=== PATIENT | male | born 1960 | race Caucasian/White ===

== ENCOUNTER 2016-12-05 15:16 | Emergency (ER) | payer OTHER ==
[2016-12-05 15:22] VITALS: BP 139/90; PULSE 77; RESP 16; TEMP 98.4; O2SAT 95
--- NOTE | 2016-12-05 16:43 | EDPHY ---
H & P Time Seen by Provider: 12/05/16 15:53 HPI/ROS: CHIEF COMPLAINT: head injury HISTORY OF PRESENT ILLNESS: Patient is a 55-year-old male who presents emergency department after striking his head on the ice while curling last evening. Patient states he had a mechanical fall. He struck his head but did not lose consciousness. He now feels mildly "slow." He has been feeling foggy and had mild nausea. No vomiting. No neck pain. No headache. No focal neurologic deficits. Patient has had a concussion in the past. REVIEW OF SYSTEMS: My complete review of systems is negative except as mentioned in the HPI. Past Medical/Surgical History: Includes Concussion Smoking Status: Former smoker Physical Exam: Vitals noted GENERAL: Well-appearing, in no acute distress, alert. HEAD: No evidence of trauma. EYES: PERRLA, EOMI, normal to inspection. ENT: Airway intact, normal external examination. NECK: The C-spine is nontender. NEXUS criteria is negative (no midline tenderness, no distracting injury, no altered mental status, no recent alcohol use, no focal neurologic deficit). RESPIRATORY: no respiratory distress CVS: well perfused BACK: Normal movement. SKIN: Normal color, warm, dry. No pallor or diaphoresis. EXTREMITIES: Atraumatic, neurovascularly intact distally in all extremities, pelvis is stable , hips with full range of motion, moves all extremities freely. NEURO/PSYCH: Higher functions: Alert and Oriented x3. Normal speech and cognition. Normal mood and affect. Cranial nerves: Normal as tested. Cerebellar: Normal as tested. Good finger to nose, good [id number], normal gait. Peripheral exam: Normal motor exam. Normal sensation. Constitutional: Initial Vital Signs Temperature (C) 36.9 C 12/05/16 15:20 Heart Rate 77 12/05/16 15:20 Respiratory Rate 16 12/05/16 15:20 Blood Pressure 139/90 H 12/05/16 15:20 O2 Sat (%) 95 12/05/16 15:20 O2 Delivery Mode Room Air Allergies/Adverse Reactions: Penicillins Allergy (Verified 12/05/16 15:19) Home Medications: Medication Instructions Recorded Flomax 12/05/16 Medical Decision Making ED Course/Re-evaluation: In the emergency department I discussed possible etiologies with the patient. At this time I do not feel the patient needs CT imaging. I explained this to the patient answers questions. Patient was given warnings regarding concussion closed-head injury. He will follow up with Dr. Woods. He was given warnings prior to leaving. He will return with worsening symptoms. Differential Diagnosis: My differential includes but is not limited to concussion, closed head injury, subarachnoid hemorrhage, subdural hematoma, epidural hematoma, spinal injury Departure - Departure Disposition: Home, Routine, Self-Care Clinical Impression: Head injury Qualifiers: Encounter type: initial encounter Qualifier Code: (S09.90XA) Unspecified injury of head, initial encounter Condition: Good Instructions: Head Injury (ED) Additional Instructions: Return with increasing headache, weakness, numbness, dizziness, more confusion or any other concerns. Referrals: Moira Woods MD [Medical Doctor] - 5-7 days, call for appt.
== END 2016-12-05 16:55 | disposition home or self-care (01) ==
DX: S09.90XA Unspecified injury of head, initial encounter (principal); Z87.891 Personal history of nicotine dependence; W18.09XA Striking against other object with subsequent fall, initial encounter; Y99.8 Other external cause status; Y93.89 Activity, other specified

== ENCOUNTER 2017-04-18 19:16 | Emergency (ER) | payer OTHER ==
[2017-04-18 19:26] VITALS: TEMP 98.8
--- NOTE | 2017-04-18 20:52 | EDPHY ---
HPI/HX/ROS/PE/MDM Narrative: CHIEF COMPLAINT: Hernia HISTORY OF PRESENT ILLNESS: The patient is a 56-year-old male presenting with "abdominal bulge" that he noticed after a bike ride today. The patient reports a new bump to his epigastric region. He has some associated tenderness to the area though he states this may be related to his GERD. He has been taking Emprizone daily for the past three weeks, without relief. He continues to have epigastric pain with bloating and belching. He denies fever, chills, chest pain , shortness of breath, palpitations, vomiting, diarrhea, urinary complaints, headache, lightheadedness. REVIEW OF SYSTEMS: Aside from elements discussed in the HPI, a comprehensive 10-point review of systems was reviewed and is negative. PAST MEDICAL HISTORY: GERD, Hypertension SOCIAL HISTORY: Daily alcohol use. VITAL SIGNS: Reviewed by me GENERAL: Well-developed, well-nourished, resting comfortably in no respiratory distress. HEENT: Atraumatic. Eyes: No icterus, no injection. Mouth: moist mucous membranes. No erythema or lesions. Neck: supple with no adenopathy. LUNGS: Clear to auscultation bilaterally, no wheezes, rhonchi or rales. CARDIAC: Regular rate and rhythm, no rubs, murmurs or gallops. ABDOMEN: Diastasis of rectus muscles, with head up patient has ventral hernia present. Epigastric tenderness. BACK: No CVA tenderness. EXTREMITIES: No trauma. No edema. Range of motion is normal throughout. NEURO: Alert and oriented, grossly nonfocal. SKIN: Warm and dry, no rash. PSYCHIATRIC: Normal mentation, no agitation. Portions of this note were transcribed by a biomedical engineering aide. I personally performed a history, physical exam, medical decision making, and confirmed accuracy of information the transcribed note. ED Course: Patient presents with diastalsis between rectus muscles representing ventral hernia when head is lifted. Patient additionally complains of epigastric tenderness. He takes omeprazole daily, without relief. Patient drinks alcohol daily. Plan to check basic lab work. Evaluation for epigastric pain largely unremarkable. Has appointment tomorrow with PCP. Will discharge. MDM: After obtaining the patients history and performing an examination, differential diagnosis considered included but was not limited to gastritis, gerd, pancreatitis, cholecystitis, ventral hernia, hiatal hernia, strangulated hernia, incarcerated hernia and other causes. - Data Points Laboratory Results: Laboratory Results 04/18/17 21:15 04/18/17 21:15 General Time Seen by Provider: 04/18/17 20:29 Initial Vital Signs: Initial Vital Signs Temperature (C) 37.1 C 04/18/17 19:22 Heart Rate 88 04/18/17 19:22 Respiratory Rate 18 04/18/17 19:22 Blood Pressure 176/113 H 04/18/17 19:22 O2 Sat (%) 96 04/18/17 19:22 O2 Delivery Mode Room Air Allergies/Adverse Reactions: Penicillins Allergy (Verified 04/18/17 19:26) Home Medications: Medication Instructions Recorded Flomax 12/05/16 HYDROCORTISONE 04/18/17 Prilosec Otc 04/18/17 Departure - Departure Disposition: Home, Routine, Self-Care Clinical Impression: Epigastric pain Ventral hernia Qualifiers: Obstruction and gangrene presence: without obstruction or gangrene Qualified Code(s): K43.9 - Ventral hernia without obstruction or gangrene Condition: Good Instructions: Ventral Hernia (ED) Additional Instructions: Call your primary care physician tomorrow to arrange a followup appointment. Your laboratory evaluation is normal. Dr. Pierce will be able to see it in the computer system. Referrals: Garrick Pierce MD [Primary Care Provider] - As per Instructions Report Scribed for: Consuelo Chavira Report Scribed by: Nicole Vela Date of Report: 04/18/17 Time of Report: 20:54
[2017-04-18 21:23] LABS: % IMMATURE GRANULYOCYTES 0.2 % (0.0-1.1); ABSOLUTE IMMATURE GRANULOCYTES 0.01 10^3/uL (0.00-0.10); ADD DIFF? NO; ADD MORPH? NO; ADD SCAN? NO; ATYPICAL LYMPHOCYTE FLAG 10 (0-99); FRAGMENT RBC FLAG 0 (0-99); HEMATOCRIT 42.7 % (40.0-51.0); HEMOGLOBIN 14.8 g/dL (13.7-17.5); LEFT SHIFT FLG 0 (0-99); LIPEMIA HEMOLYSIS FLAG 90 (0-99); MEAN CELL HEMOGLOBIN 31.8 pg (27.9-34.1); MEAN CELL HEMOGLOBIN CONCENTR. 34.7 g/dL (32.4-36.7); MEAN CELL VOLUME 91.6 fL (81.5-99.8); MEAN PLATELET VOLUME 10.7 fL (8.7-11.7); PLATELET CLUMPS FLAG 10 (0-99); PLATELET COUNT 168 10^3/uL (150-400); RED BLOOD CELL COUNT 4.66 10^6/uL (4.40-6.38); RED CELL DISTRIBUTION WIDTH 12.9 % (11.5-15.2)
[2017-04-18 21:35] LABS: ALANINE AMINOTRANSFERASE 37 IU/L (21-72); ALBUMIN 4.7 g/dL (3.5-5.0); ALKALINE PHOSPHATASE 51 IU/L (38-126); ANION GAP 11 mEq/L (8-16); ASPARTATE AMINOTRANSFERASE 41 IU/L (17-59); BILIRUBIN,TOTAL 1.3 mg/dL (0.1-1.4); BILIRUBIN-CONJUGATED 0.2 mg/dL (0.0-0.5); BILIRUBIN-UNCONJUGATED 1.1 mg/dL (0.0-1.1); CALCIUM 9.6 mg/dL (8.5-10.4); CARBON DIOXIDE 21 mEq/l (22-31); CHLORIDE 103 mEq/L (97-110); CREATININE 0.8 mg/dL (0.7-1.3); GLOMERULAR FILTRATION RATE > 60; GLUCOSE 99 mg/dL (70-100); POTASSIUM 4.5 mEq/L (3.5-5.2); SODIUM 135 mEq/L (134-144); SPECIMEN HEMOLYSIS 104; TOTAL PROTEIN 7.9 g/dL (6.3-8.2)
[2017-04-18 22:00] VITALS: BP 152/98; PULSE 67; RESP 16; O2SAT 97
== END 2017-04-18 22:00 | disposition home or self-care (01) ==
DX: K43.9 Ventral hernia without obstruction or gangrene (principal); I10 Essential (primary) hypertension